=== PATIENT | male | born 1995 | race Caucasian/White ===

== ENCOUNTER 2023-07-20 18:41 | Emergency (ER) | payer OTHER, MEDICAID, SELFPAY ==
[2023-07-20 18:47] VITALS: BP 155/90; PULSE 105; RESP 20; TEMP 37.1; O2SAT 97; BMI 42.7
--- NOTE | 2023-07-20 19:28 | DI.RAD.S_ITS ---
PROCEDURE: XR CHEST 1V INDICATIONS: COUGH, DYSPNEA TECHNIQUE: One view of the chest was acquired. COMPARISON: None. FINDINGS: Surgical changes and devices: None. Lungs and pleura: Patchy consolidations involving the left lower lung zone with mild perihilar airway thickening. No pneumothorax or pleural effusion. Mediastinum: Mediastinal contours appear normal. Heart size is normal. Bones and chest wall: No suspicious bony lesions. Overlying soft tissues appear unremarkable. IMPRESSION: Left lower lobe pneumonia. Recommend follow up chest radiograph 4-6 weeks after treatment to document resolution of findings and/or return to baseline examination. Dictated by: Carlos Escalera M.D. on 07/20/2023 at 21:01 Approved by: Carlos Escalera M.D. on 07/20/2023 at 21:02
--- NOTE | 2023-07-20 19:53 | ED.SOB ---
HPI - SOB/Dyspnea General Chief Complaint: Shortness of Breath/Dyspnea Stated Complaint: Cough, SoB, Chills Time Seen by Provider: 07/20/23 19:00 Source: patient Mode of arrival: Ambulatory Limitations: no limitations History of Present Illness HPI Narrative: 28-year-old male with history of asthma presents with 4 days of chills, cough, body aches. Patient is running out of his albuterol inhaler and feels poorly and is here today for evaluation. No other medications taken prior to arrival. Related Data Previous Rx's Medication Instructions Recorded amoxicillin 875 mg-potassium 1 tab PO Q12H #10 tabs 07/20/23 clavulanate 125 mg tablet doxycycline hyclate 100 mg capsule 100 mg PO BID #10 caps 07/20/23 Allergies Allergy/AdvReac Type Severity Reaction Status Date / Time morphine Allergy Vomiting Verified 07/20/23 18:47 phenobarbital Allergy Hives Verified 07/20/23 18:47 Review of Systems Review of Systems Narrative: See HPI Patient History Social History Smoking Status: Never smoker Smoking Status: Never smoker Substance Use Type: does not use Exam Initial Vital Signs Initial Vital Signs: Vital Signs Temperature 98.7 F 07/20/23 18:47 Pulse Rate 105 H 07/20/23 18:47 Respiratory Rate 20 07/20/23 18:47 Blood Pressure 155/90 H 07/20/23 18:47 Pulse Oximetry 97 07/20/23 18:47 Oxygen Delivery Method Room Air 07/20/23 18:47 Const: Awake, alert, no acute distress, nontoxic appearing Cardiac: regular rate, regular rhythm RESP: unlabored, faint inspiratory crackles left lower lobe, soft expiratory rhonchi lower lung matthews Skin: Warm, Dry, intact, no rashes Neuro: AO x3, CN II-XII grossly intact, moves all extremities Course Orders Ordered: ED Orders 07/20/23 19:28 Chest [XR chest 1V] Stat 07/20/23 19:29 RT Consult Eval and Treat NOW 07/20/23 20:10 Respiratory Panel (Film Array) Stat Discontinued Medications Albuterol (Albuterol Hfa Prepack) 1 box MISC DIRECTED ONE Stop: 07/20/23 21:10 Last Admin: 07/20/23 21:19 Dose: 1 box Documented By: UNIQUE Amoxicillin/Clavulanate Potassium (Amoxicillin/Clav 875/125 Mg) 1 tab PO NOW ONE Stop: 07/20/23 21:10 Last Admin: 07/20/23 21:18 Dose: 1 tab Documented By: UNIQUE Doxycycline Hyclate (Doxycycline Hyclate 100 Mg Tablet) 100 mg PO NOW ONE Stop: 07/20/23 21:10 Last Admin: 07/20/23 21:19 Dose: 100 mg Documented By: UNIQUE Ketorolac Tromethamine (Ketorolac 30 Mg/Ml Vial) 30 mg IM NOW ONE Stop: 07/20/23 21:08 Last Admin: 07/20/23 21:18 Dose: 30 mg Documented By: UNIQUE Vital Signs Vital signs: Vital Signs - 8 hr 07/20/23 21:19 Temperature 98.4 F Pulse Rate 100 H Respiratory Rate 22 Blood Pressure 160/97 H Pulse Oximetry 97 Oxygen Delivery Method Room Air MDM - SOB/Dyspnea Differential Diagnosis Differential diagnosis: Likely acute exacerbation of chronic obstructive airways disease, congestive heart failure and community acquired pneumonia Lab Data Labs: Lab Results 07/20/23 Range/Units 20:10 Chlamy pneumoniae PCR Not detected (Not Detect) Adenovirus (PCR) Not detected (Not Detect) B.parapertussis DNA PCR Not detected (Not Detecte) Coronavirus OC43 (PCR) Not detected (Not Detect) Coronavirus HKU1 (PCR) Not detected (Not Detect) Coronavirus 229E (PCR) Not detected (Not Detect) SARS-CoV-2 (PCR) Not detected (Not Detecte) Coronavirus NL63 (PCR) Not detected (Not Detect) Human Metapneumovir PCR Detected H (Not Detect) Influenza Type A (PCR) Not detected (Not Detect) Influenza Type B (PCR) Not detected (Not Detect) M. pneumoniae (PCR) Not detected (Not Detect) Parainfluenza 1 (PCR) Not detected (Not Detect) Parainfluenza 2 (PCR) Not detected (Not Detect) Parainfluenza 3 (PCR) Not detected (Not Detect) Parainfluenza 4 (PCR) Not detected (Not Detect) RSV (PCR) Not detected (Not Detect) Entero/Rhino (PCR) Not detected (Not Detect) Imaging Data Chest x-ray: Radiologist's Impression: PROCEDURE: XR CHEST 1V INDICATIONS: COUGH, DYSPNEA TECHNIQUE: One view of the chest was acquired. COMPARISON: None. FINDINGS: Surgical changes and devices: None. Lungs and pleura: Patchy consolidations involving the left lower lung zone with mild perihilar airway thickening. No pneumothorax or pleural effusion. Mediastinum: Mediastinal contours appear normal. Heart size is normal. Bones and chest wall: No suspicious bony lesions. Overlying soft tissues appear unremarkable. IMPRESSION: Left lower lobe pneumonia. Recommend follow up chest radiograph 4-6 weeks after treatment to document resolution of findings and/or return to baseline examination. Dictated by: Carlos Escalera M.D. on 07/20/2023 at 21:01 Approved by: Carlos Escalera M.D. on 07/20/2023 at 21:02 [facility] Narrative Medical decision making narrative: Nontoxic patient with several days of persistent symptoms. Saturating well on room air, conversational on room air without dyspnea. Afebrile on arrival. Chest x-ray shows small left-sided pneumonia. Respiratory panel positive for human metapneumovirus. Since patient has underlying viral infection as well as history of asthma we will treat with dual antibiotic therapy. Initial dose of Augmentin and doxycycline given in the emergency department since pharmacies are closed. Patient also requested a refill of his albuterol inhaler as he was almost out, a prepack sent with the patient at time of discharge. Recommended PCP follow up to ensure resolution of pneumonia. Discharge Plan Departure Patient Disposition: Home Clinical Impression: Community acquired pneumonia, Human metapneumovirus pneumonia Instructions: DI for Pneumonia -- Adult Activity Restrictions/Additional Instructions: Your x-ray shows that you have a small left-sided lower lobe pneumonia. You also tested positive for human metapneumovirus. Take all of your antibiotics as prescribed. Continue to take Tylenol and ibuprofen as needed for pain or body aches. Please follow up with the primary care physician to ensure resolution of your pneumonia. Prescriptions: New amoxicillin-pot clavulanate 875-125 mg tablet 1 tab PO Q12H Qty: 10 0RF doxycycline hyclate 100 mg capsule 100 mg PO BID Qty: 10 0RF Stand Alone Forms: Patient Portal/API
[2023-07-20 21:04] LABS: Adenovirus Not Detected (Not Detect); B. parapertussis Not Detected (Not Detecte); Bordetella pertussis Not Detected (Not Detect); Chlamydophila pneumoniae Not Detected (Not Detect); Coronavirus 229E Not Detected (Not Detect); Coronavirus HKU1 Not Detected (Not Detect); Coronavirus NL 63 Not Detected (Not Detect); Coronavirus OC43 Not Detected (Not Detect); Human Metapneumovirus Detected (Not Detect); Human Rhinovirus/Enterovirus Not Detected (Not Detect); Influenza A Not Detected (Not Detect); Influenza B Not Detected (Not Detect); Mycoplasma pneumoniae Not Detected (Not Detect); Parainfluenza Virus 1 Not Detected (Not Detect); Parainfluenza Virus 2 Not Detected (Not Detect); Parainfluenza Virus 3 Not Detected (Not Detect); Parainfluenza Virus 4 Not Detected (Not Detect); Respiratory Syncytial Virus Not Detected (Not Detect); SARS- CoV-2 Not Detected (Not Detecte)
[2023-07-20] MEDS: KETOROLAC 30 MG/ML VIAL IM (21:18)
[2023-07-20] MEDS: AMOXICILLIN/CLAV 875/125 MG 1 TAB PO (21:18)
[2023-07-20 21:19] VITALS: BP 160/97; PULSE 100; RESP 22; TEMP 36.9; O2SAT 97
[2023-07-20] MEDS: ALBUTEROL HFA PREPACK 1 BOX MISC (21:19)
[2023-07-20] MEDS: DOXYCYCLINE HYCLATE 100 MG TABLET PO (21:19)
== END 2023-07-20 21:30 | disposition home or self-care (01) ==
PROVIDERS: Emergency Provider Emergency Medicine
DX: J12.3 Human metapneumovirus pneumonia (principal); Z20.822 Contact with and (suspected) exposure to COVID-19
CPT/HCPCS: 71045; 87633; 96372; 99283; J1885